=== PATIENT | female | born 2000 | race Caucasian/White ===

== ENCOUNTER → 2023-09-28 11:49 | Outpatient (REF) | payer OTHER, SELFPAY ==
[2023-09-28 12:32] LABS: % Basophils 0.9 % (0-2); % Eosinophils 5.5 % (0-6); % Immature Granulocytes 0.1 % (0-0.5); % Lymphocytes 30.2 % (20.5-51.1); % Monocytes 5.9 % (1.7-9.3); % Neutrophils 57.4 % (42.2-75.2); Absolute Basophils 0.1 10^3/uL (0-0.2); Absolute Eosinophils 0.5 10^3/uL (0-0.7); Absolute Lymphocytes 2.9 10^3/uL (1.2-3.4); Absolute Monocytes 0.6 10^3/uL (0.1-0.6); Absolute Neutrophils 5.6 10^3/uL (1.4-6.5); Hematocrit 41.3 % (37.0-47.0); Hemoglobin 13.3 g/dL (12.0-16.0); Mean Corp Hgb Conc. 32.2 g/dL (33.0-37.0); Mean Corpuscular Hgb 26.2 pg (27.0-31.0); Mean Corpuscular Volume 81.5 fL (81.0-99.0); Mean Platelet Volume 11.3 fL (7.4-10.4); Nucleated Red Blood Cells % 0 %; Platelet Count 447 10^3/uL (130-400); Red Blood Cell Count 5.07 10^6/uL (4.20-5.40); Red Cell Dist. Width 13.8 % (11.5-14.5); White Blood Cell Count 9.7 10^3/uL (4.8-10.8)
[2023-09-28 12:42] LABS: ALT (SGPT) 16 U/L (0-35); AST (SGOT) 18 U/L (14-36); Albumin 4.9 g/dl (3.5-5.0); Alkaline Phosphatase 118 U/L (38-126); Blood Urea Nitrogen 13 mg/dl (7-17); Calcium 10.4 mg/dl (8.4-10.2); Carbon Dioxide 24 mmol/L (22-30); Chloride 101 mmol/L (98-107); Glucose 95 mg/dl (70-99); HDL Cholesterol 93 mg/dl; Iron 118 ug/dl (37-170); LDL Cholesterol, Calculated 90 mg/dl; Potassium 4.9 mmol/L (3.5-5.1); Sodium 135 mmol/L (135-145); Total Bilirubin 0.5 mg/dl (0.2-1.3); Total Cholesterol 213 mg/dl (50-199); Total Protein 7.9 g/dl (6.3-8.2); Triglyceride 154 mg/dl (10-149); Very Low Density Lipoprotein 30 mg/dl (0-30); eGFR > 60.00
[2023-09-28 12:51] LABS: Percent Saturation 27 % (20-50); Total Iron Binding Capacity 430 ug/dl (265-497)
[2023-09-28 12:59] LABS: Vitamin D, 25-OH*** 35.3 ng/mL (30-80)
[2023-09-28 13:12] LABS: TSH Reflex To Free T4 2.51 uIU/ml (0.47-4.68)
[2023-09-28 13:17] LABS: Ferritin 8.3 ng/ml (6.24-137)
[2023-09-28 14:10] LABS: Glycohemoglobin (HgbA1c) 5.9 % (4.0-5.6)
== END ==
LOC: REG 11:49
PROVIDERS: ATTENDING PHYSICIAN Nurse Practitioner Family
DX: R73.01 Impaired fasting glucose (principal); R53.83 Other fatigue; E66.9 Obesity, unspecified; D50.9 Iron deficiency anemia, unspecified; E55.9 Vitamin D deficiency, unspecified
CPT/HCPCS: 80053; 80061; 82306; 82728; 83036; 83540; 83550; 84443; 85025

== ENCOUNTER → 2023-10-30 16:29 | Outpatient (REF) | payer OTHER, SELFPAY ==
[2023-10-30 16:56] LABS: Ionized Calcium 1.16 mMOL/L (1.15-1.33)
[2023-10-30 17:08] LABS: Calcium 9.5 mg/dl (8.4-10.2)
== END ==
LOC: REG 16:29
PROVIDERS: ATTENDING PHYSICIAN Nurse Practitioner Family
DX: E83.52 Hypercalcemia (principal)
CPT/HCPCS: 36415; 82330; 83970

== ENCOUNTER → 2024-02-04 14:18 | Outpatient (REF) | payer OTHER, SELFPAY | LOC: HWRAD 14:18 | PROVIDERS: ATTENDING PHYSICIAN Internal Medicine Gastroenterology; FAMILY PHYSICIAN Physician Assistant; REFERRING PHYSICIAN Internal Medicine | DX: D18.03 Hemangioma of intra-abdominal structures (principal) | CPT/HCPCS: 76700 ==

== ENCOUNTER 2024-04-16 18:26 | Emergency (ER) | payer OTHER, SELFPAY ==
[2024-04-16 18:30] VITALS: BP 120/83
[2024-04-16 18:49] LABS: Urine Albumin Negative (Neg - Trace); Urine Bilirubin Negative (Negative); Urine Character Clear (Clear); Urine Color Straw; Urine Glucose Negative (Negative); Urine Ketone Negative (Negative); Urine Leukocyte Negative (Negative); Urine Nitrite Negative (Negative); Urine Occult Blood Negative (Negative); Urine Urobilinogen Negative (Neg - 1+)
[2024-04-16] MEDS: LIDOCAINE 4% PATCH 1 PATCH TOPICAL (19:55)
[2024-04-16] MEDS: TORADOL 15 MG IM (19:55)
[2024-04-16] MEDS: FLEXERIL 10 MG PO (19:55)
--- NOTE | 2024-04-16 20:07 | ED.GENMED ---
History of Present Illness
General
Chief Complaint: Back Pain
Time Seen by Provider: 04/16/24 19:04
History of Present Illness
History of Present Illness:
23-year-old female with history of Hollins's esophagus, epilepsy, in utero CVA presenting to the emergency department with back pain. Patient reports midline lumbar back pain. Reports pain for the past week. On Saturday, 5 days ago, she was playing
with her younger cousins and doing a back bridge. Her pain has since worsened. Denies for any radiation of pain. Denies numbness or tingling to her legs. Denies fever, chest pain, difficulty breathing. Denies abdominal pain. She has tried
Tylenol for her pain without significant relief. She has been urinating without issue, however does note some urinary frequency. Denies any flank pain. Denies additional acute medical complaints
Past History
Past History
ED Past Medical History: Other (Barretts metaplasia, CVA in uterero, Cognitive delay, chronic abdominal pain, chronic constipation, frequent vomiting)
ED Past Surgical History: None
Patient has exhibited threatening behavior?: No
Social History
Tobacco: Non-smoker
Alcohol: None
Drug: None
Personal: Single
Living: alone (ON CAMPUS)
Employment: Student
Phy Exam
Physical Exam
Physical Exam:
General: Well-appearing, no clinical signs of dehydration, nontoxic and in no acute distress
HEENT: protecting airway
Neck: appears supple
CV: Normal heart rate, regular rhythm
Resp: No accessory muscle use, no increased work of breathing
Abd: Soft and non-distended, no tenderness to palpation
Extremities: No deformities, no swelling, no erythema, pulses and sensation intact. Range of motion intact. Focal tenderness to the lower lumbar spine. No step-offs. No erythema.
Neuro: alert, no focal neurologic deficit
: deferred
Rectal: deferred
Psych: Normal affect
Skin: Intact
Course
Orders/Labs/Results
Orders:
Orders
04/16/24 18:43
Urinalysis Reflex To Culture Urgent
Date Specimen was Collected: 04/16/24
Time Specimen was Collected: 18:30
04/16/24 19:44
Cyclobenzaprine HCl [Flexeril] 10 mg PO NOW STA
Ketorolac [Toradol] 15 mg IM NOW STA
Lumbar Spine Complete, 4 View [CR Lumbar Spine Comp Min 4 Vw*] Urgent
Comment:
Reason For Exam: pain lower lumbar
04/16/24 19:45
Lidocaine [Lidocaine 4% Patch] 1 patch TOPICAL ONCE ONE
Apply Lidocaine patch(s) to:: lumbar back
Vital Signs
Initial and Last Documented VS:
Initial Vital Signs
Temp Pulse Resp BP Pulse Ox
98.7 F 80 14 120/83 99
04/16/24 18:30 04/16/24 18:30 04/16/24 18:30 04/16/24 18:30 04/16/24 18:30
Last Documented Vital Signs
Temp Pulse Resp BP Pulse Ox
98.7 F 80 14 120/83 99
04/16/24 18:30 04/16/24 18:30 04/16/24 18:30 04/16/24 18:30 04/16/24 18:30
MDM/Problems Addressed
MDM/Problems Addressed:
23-year-old female presenting with lower back pain for the past week. Vital signs on arrival are normal.
On exam patient is well-appearing, resting comfortably, no acute distress. Symptoms appear most consistent with musculoskeletal strain, possible muscle spasm to the paraspinal musculature. Lower suspicion for acute fracture or malalignment in the
absence of direct trauma. Given midline tenderness, will obtain x-ray imaging. No fever, systemic symptoms, or midline tenderness, without concern for spinal abscess or infection. No red flag such as bowel or bladder incontinence, focal weakness,
or any sensory deficits on exam, without present concern for spinal compression. Patient had urinalysis, no RBCs, no flank tenderness, without concern for pyelonephritis or nephrolithiasis. Will treat patient with Toradol, lidocaine patch,
cyclobenzaprine. Will reassess for improvement.
10:00 - X-ray without fracture or malalignment. Patient does note some improvement in her pain. At this time feel stable for discharge with outpatient follow-up. Return precautions discussed and patient verbalized understanding.
*Critical Care Note
Total Time (30-74mins, 75-104mins- exclusive of procedures): Not Applicable
ED Attending Note
-
Portions of this chart may have been created with voice recognition software.� Occasional wrong word or��sound alike� substitutions may have occurred due to the inherent limitations of voice recognition software.
Discharge Plan
Departure
Prescriptions:
No Action
esomeprazole magnesium [Nexium] 40 MG capsule,delayed release(DR/EC)
40 mg PO DAILY
montelukast 10 MG tablet
10 mg PO DAILY
fluticasone propionate [Flovent HFA] 1 PUFF HFA aerosol inhaler
2 puff inhalation Daily
epinephrine [EpiPen] 0.3 MG/0.3/SYRINGE auto-injector
0.3 mg IM PRN PRN (Reason: difficulty breathing) Qty: 1 0RF
polyethylene glycol 3350 17 GRAMS powder in packet
17 grams PO PRN PRN (Reason: Constipation )
docusate sodium 100 MG capsule
100 mg PO HS
Control
1 dose PO DAILY
cetirizine 10 MG tablet
10 mg PO DAILY
levalbuterol HCl [Xopenex] 0.31 MG/3 ML solution for nebulization
0.31 mg IH PRN PRN (Reason: asthma)
ondansetron 4 MG tablet,disintegrating
4 mg PO TIDPRN PRN (Reason: nausea/vomiting) Qty: 10 0RF
levetiracetam 500 MG tablet
500 mg PO BID Qty: 30 0RF
Referrals:
Caroline Guy PA-C [Family Provider] -
Interventions
Interventions:
*Risk Screen - Suicide Last Done: 04/16/24 18:30
*General Assessment Last Done: 04/16/24 18:30
*Neglect/Abuse Screening Last Done: 04/16/24 18:30
ED-Musculoskeletal Assessment Last Done: 04/16/24 20:12
Discharge Date and Time
Print Language: NEPALESE
[2024-04-16 22:49] VITALS: BP 105/77
== END 2024-04-16 22:51 | disposition home or self-care (01) ==
LOC: EMR 18:26
PROVIDERS: Emergency Medicine; EMERGENCY PHYSICIAN Student in an Organized Health Care Education/Training Program; FAMILY PHYSICIAN Physician Assistant
DX: S39.012A Strain of muscle, fascia and tendon of lower back, initial encounter (principal); M62.838 Other muscle spasm; X58.XXXA Exposure to other specified factors, initial encounter; G40.909 Epilepsy, unspecified, not intractable, without status epilepticus; Z86.73 Personal history of transient ischemic attack (TIA), and cerebral infarction without residual deficits; Z87.19 Personal history of other diseases of the digestive system
CPT/HCPCS: 99283; 72110; 81003